=== PATIENT | male | born 1965 | race Caucasian/White ===

== ENCOUNTER 2017-09-21 18:30 | Emergency (ER) | payer OTHER ==
[~2017-09-21 18:30] MED LIST: ACET-1966 PO; CALC300T21 PO; DEXL60CA6 PO; ESOM40CA42 PO; FENU500C PO; HYDR-385 PO; KET10 PO; LACT1CAP6 PO; LOR5/325 PO; MULT-1335 PO; ONDA4TAB PO; SIL50 PO; TRAM-420 PO; no rtn meds
--- NOTE | 2017-09-21 18:39 | ER Report ---
History and Physical Time Seen By MD: 18:39 HPI/ROS CHIEF COMPLAINT: Facial numbness HISTORY OF PRESENT ILLNESS: This is a 51-year-old male who presents to the emergency departments for facial numbness and vertigo type sensation. Patient states that about one week ago he began to feel fatigued, with overall malaise progressing through the week. Patient states on Thursday he had an episode where he felt lightheaded or "dizzy". Patient states that then Thursday he had the same sensation of feeling lightheaded and dizzy more so when he turned his head to the right, patient also states that Thursday he started noticing his face on the left side around the orbit began to feel different, "kind of numb". Patient denies aches, chills, nausea, vomiting, diarrhea is normally pretty healthy. Denies chest pain or shortness of breath. Denies headaches. REVIEW OF SYSTEMS: Constitutional: No fever, no chills. Eyes: No discharge. ENT: No sore throat. Cardiovascular: No chest pain, no palpitations. Respiratory: No cough, no shortness of breath. Gastrointestinal: No abdominal pain, no vomiting. Genitourinary: No hematuria. Musculoskeletal: No back pain. Skin: No rashes. Neurological: As above. Allergies: Coded Allergies: Penicillins (Verified Allergy, Mild, STOMACH UPSET WITH MOST ABX. PCN IN PARTICULAR, 09/21/17) Home Meds Reported Medications [Nugenix] No Conflict Check 09/21/17 Omeprazole (OMEPRAZOLE) 20 Mg Capsule.dr, 1 CAP PO QDAY, CAP 09/21/17 Multivitamin With Minerals (MULTIPLE VITAMIN) 1 Each Tablet, 1 EACH PO DAILY, TAB 08/13/15 Discontinued Reported Medications Acetaminophen (TYLENOL) 325 Mg Tablet, 1-2 TAB PO Q6-8H Y for PAIN, TAB 04/15/16 Fenugreek Seed Extract (FENUGREEK) 500 Mg Capsule, 1 CAP PO QDAY, CAPSULE 04/15/16 Lactobacillus Combination No.4 (PROBIOTIC) 1 Each Capsule, 1 EACH PO QDAY, CAPSULE 04/15/16 Esomeprazole Magnesium (NEXIUM) 40 Mg Capsule.dr, 1 CAP PO QDAY, CAP 08/13/15 Discontinued Scripts Sildenafil Citrate (VIAGRA) 50 Mg Tab, 50 MG PO DAILY, #30 TAB Take 30 mins to four hours before sexual activity. Prov:YOLI FOREMAN MD 04/15/16 Past Medical/Surgical History Calloway has a past medical and surgical history of hypertension, GERD, gallbladder disease, cholecystectomy, broken jaw, broken fingers and toes, occasional back pain, wears glasses, jaw surgery. Reviewed Nurses Notes: Yes Hx Smoking: Yes Smoking Status: Former Smoker Exposure to Second Hand Smoke?: Yes Hx Substance Use Disorder: No Hx Alcohol Use: No Constitutional Vital Sign - Last 24 Hours 09/21/17 09/21/17 09/21/17 09/21/17 18:36 18:40 19:00 19:41 Temp 97.8 Pulse 72 72 Resp 14 15 B/P (MAP) 158/88 (111) 158/88 136/99 (111) Pulse Ox 95 O2 Delivery Room Air 09/21/17 09/21/17 09/21/17 20:00 20:14 20:19 Pulse 61 58 Resp 14 16 B/P (MAP) 133/87 (102) Pulse Ox 94 96 Physical Exam General Appearance: The patient is alert, has no immediate need for airway protection and no signs of toxicity. Eyes: Pupils equal and round no pallor or injection. ENT, Mouth: Mucous membranes are moist. Tonsillar hypertrophy 3+, patient states this is normal. Mildly bulging eardrum on the right, no injection, landmarks noted. Left TM intact, pearly leigh, landmarks noted. No sinus pain with palpation. Respiratory: There are no retractions, lungs are clear to auscultation. Cardiovascular: Regular rate and rhythm, no murmurs, clicks or rubs. Gastrointestinal: Abdomen is soft and non tender, no masses, bowel sounds normal. Neurological: Alert and oriented 4. Moving all extremities. Following all commands. No focal neuro deficits. Cranial nerves II through XII intact. Mild decreased sensation to the left forehead and left chin, no other deficits. Skin: Warm and dry, no rashes. Musculoskeletal: Neck is supple non tender. Extremities are nontender, nonswollen and have full range of motion. DIFFERENTIAL DIAGNOSIS: After history and physical exam differential diagnosis was considered for dizziness including but not limited to peripheral and central causes of vertigo, orthostatic causes including dehydration, CVA, TIA and blood loss. Medical Decision Making Data Points Result Diagram: 09/21/17184409/21/171844 Laboratory Hematology Test 09/21/17 18:45 Red Blood Count 4.83 M/uL (4.00-5.60) Mean Corpuscular Volume 90.4 fL (80.0-96.0) Mean Corpuscular Hemoglobin 31.3 pg (26.0-33.0) Mean Corpuscular Hemoglobin Concent 34.6 g/dL (32.0-36.0) Red Cell Distribution Width 13.9 % (11.5-14.5) Mean Platelet Volume 7.9 fL (7.2-11.1) Neutrophils (%) (Auto) 59.4 % (39.4-72.5) Lymphocytes (%) (Auto) 28.0 % (17.6-49.6) Monocytes (%) (Auto) 8.1 % (4.1-12.4) Eosinophils (%) (Auto) 2.2 % (0.4-6.7) Basophils (%) (Auto) 2.3 % (0.3-1.4) Nucleated RBC Relative Count (auto) 0.0 /100WBC Neutrophils # (Auto) 5.2 K/uL (2.0-7.4) Lymphocytes # (Auto) 2.4 K/uL (1.3-3.6) Monocytes # (Auto) 0.7 K/uL (0.3-1.0) Eosinophils # (Auto) 0.2 K/uL (0.0-0.5) Basophils # (Auto) 0.2 K/uL (0.0-0.1) Nucleated RBC Absolute Count (auto) 0.00 K/uL Urine Color Straw Urine Clarity Clear Urine pH 5.0 pH (4.8-9.5) Urine Specific [place] 1.004 Urine Protein Negative mg/dL (NEGATIVE) Urine Glucose (UA) Negative mg/dL (NEGATIVE) Urine Ketones Negative mg/dL (NEGATIVE) Urine Blood Negative (NEGATIVE) Urine Nitrite Negative (NEGATIVE) Urine Bilirubin Negative (NEGATIVE) Urine Urobilinogen Negative mg/dL (0.2-1.9) Urine Leukocyte Esterase Trace (NEGATIVE) Urine RBC 1 /HPF (0-2/HPF) Urine WBC <1 /HPF (0-5/HPF) Urine Squamous Epithelial Cells None /LPF (</=FEW) Urine Bacteria Negative /HPF (NONE-FEW) Urine Mucus None /HPF (NONE-FEW) Sodium Level 140 mmol/L (137-145) Potassium Level 3.8 mmol/L (3.5-5.0) Chloride Level 106 mmol/L (98-107) Carbon Dioxide Level 23 mmol/L (22-30) Blood Urea Nitrogen 15 mg/dl (9-21) Creatinine 1.10 mg/dl (0.66-1.25) Glomerular Filtration Rate Calc > 60.0 Random Glucose 92 mg/dl (75-110) Calcium Level 9.5 mg/dl (8.4-10.2) Total Bilirubin 0.3 mg/dl (0.2-1.3) Aspartate Amino Transf (AST/SGOT) 23 U/L (0-35) Alanine Aminotransferase (ALT/SGPT) 33 U/L (0-56) Alkaline Phosphatase 66 U/L (0-126) Troponin I < 0.012 ng/ml Total Protein 7.7 gm/dl (6.3-8.2) Albumin 4.2 g/dl (3.5-5.0) Chemistry Test 09/21/17 18:45 White Blood Count 8.7 k/uL (4.5-11.0) Red Blood Count 4.83 M/uL (4.00-5.60) Hemoglobin 15.1 g/dL (14.0-18.0) Hematocrit 43.6 % (42.0-52.0) Mean Corpuscular Volume 90.4 fL (80.0-96.0) Mean Corpuscular Hemoglobin 31.3 pg (26.0-33.0) Mean Corpuscular Hemoglobin Concent 34.6 g/dL (32.0-36.0) Red Cell Distribution Width 13.9 % (11.5-14.5) Platelet Count 237 K/uL (150-450) Mean Platelet Volume 7.9 fL (7.2-11.1) Neutrophils (%) (Auto) 59.4 % (39.4-72.5) Lymphocytes (%) (Auto) 28.0 % (17.6-49.6) Monocytes (%) (Auto) 8.1 % (4.1-12.4) Eosinophils (%) (Auto) 2.2 % (0.4-6.7) Basophils (%) (Auto) 2.3 % (0.3-1.4) Nucleated RBC Relative Count (auto) 0.0 /100WBC Neutrophils # (Auto) 5.2 K/uL (2.0-7.4) Lymphocytes # (Auto) 2.4 K/uL (1.3-3.6) Monocytes # (Auto) 0.7 K/uL (0.3-1.0) Eosinophils # (Auto) 0.2 K/uL (0.0-0.5) Basophils # (Auto) 0.2 K/uL (0.0-0.1) Nucleated RBC Absolute Count (auto) 0.00 K/uL Urine Color Straw Urine Clarity Clear Urine pH 5.0 pH (4.8-9.5) Urine Specific [place] 1.004 Urine Protein Negative mg/dL (NEGATIVE) Urine Glucose (UA) Negative mg/dL (NEGATIVE) Urine Ketones Negative mg/dL (NEGATIVE) Urine Blood Negative (NEGATIVE) Urine Nitrite Negative (NEGATIVE) Urine Bilirubin Negative (NEGATIVE) Urine Urobilinogen Negative mg/dL (0.2-1.9) Urine Leukocyte Esterase Trace (NEGATIVE) Urine RBC 1 /HPF (0-2/HPF) Urine WBC <1 /HPF (0-5/HPF) Urine Squamous Epithelial Cells None /LPF (</=FEW) Urine Bacteria Negative /HPF (NONE-FEW) Urine Mucus None /HPF (NONE-FEW) Glomerular Filtration Rate Calc > 60.0 Calcium Level 9.5 mg/dl (8.4-10.2) Total Bilirubin 0.3 mg/dl (0.2-1.3) Aspartate Amino Transf (AST/SGOT) 23 U/L (0-35) Alanine Aminotransferase (ALT/SGPT) 33 U/L (0-56) Alkaline Phosphatase 66 U/L (0-126) Troponin I < 0.012 ng/ml Total Protein 7.7 gm/dl (6.3-8.2) Albumin 4.2 g/dl (3.5-5.0) Urinalysis Test 09/21/17 18:45 Urine Color Straw Urine Clarity Clear Urine pH 5.0 pH (4.8-9.5) Urine Specific [place] 1.004 Urine Protein Negative mg/dL (NEGATIVE) Urine Glucose (UA) Negative mg/dL (NEGATIVE) Urine Ketones Negative mg/dL (NEGATIVE) Urine Blood Negative (NEGATIVE) Urine Nitrite Negative (NEGATIVE) Urine Bilirubin Negative (NEGATIVE) Urine Urobilinogen Negative mg/dL (0.2-1.9) Urine Leukocyte Esterase Trace (NEGATIVE) Urine RBC 1 /HPF (0-2/HPF) Urine WBC <1 /HPF (0-5/HPF) Urine Squamous Epithelial Cells None /LPF (</=FEW) Urine Bacteria Negative /HPF (NONE-FEW) Urine Mucus None /HPF (NONE-FEW) EKG/Imaging EKG Interpretation 12 lead EKG: Time of EKG 1901. Rhythm: Sinus rhythm, 65 bpm. Sherwood: Incomplete right bundle branch block. QRS: normal ST segments: No ST elevation or depression identified. Inverted T waves in V1 and V3 V4 V5. A previous EKG to compare to. Imaging Location: [facility] [place] Patient: Red Barraza : 1965 Visit/Account:[id number] Date of Sevice: 09/21/2017 Examination: CHEST PA AND LAT Comparison: 08/13/2015 History: dizziness Findings: No consolidation, nodule, or peribronchial inflammation. No pneumothorax, edema, or effusion. Cardiac and hilar contour size is normal. Osseous structures are intact. IMPRESSION: No evidence of acute cardiopulmonary disease. Report Dictated By: Vishnu Tovar MD at 09/21/2017 7:57 PM Report E-Signed By: Vishnu Tovar MD at 09/21/2017 7:58 PM WSN:[id number] Location: [facility] [place] Patient: Red Barraza : 1965 Visit/Account:[id number] Date of Sevice: 09/21/2017 EXAMINATION: CT HEAD WITHOUT CONTRAST COMPARISON: None available HISTORY: dizziness, facial numbness PROCEDURE: Noncontrast CT from the vertex through the skull base. One of the following dose optimization techniques was utilized in the performance of this exam: Automated exposure control; adjustment of the mA and/or kV according to the patient's size; or use of an iterative reconstruction technique. Specific details can be referenced in the facility's radiology CT exam operational policy. FINDINGS: Brain volume: Age-appropriate. Hemorrhage/extra-axial fluid: None. Mass effect/midline shift/edema: None. Ischemia: Leigh-white differentiation is preserved. Ventricles and basal cisterns: Within normal limits. Posterior fossa: Negative. Vessels: Carotid atherosclerosis. Calvarium, skull base, and scalp: Negative. Visualized sinuses and orbits: Within normal limits. IMPRESSION: Negative age-appropriate noncontrast head CT. Report Dictated By: Vishnu Tovar MD at 09/21/2017 7:53 PM Report E-Signed By: Vishnu Tovar MD at 09/21/2017 7:57 PM WSN:[id number] ED Course/Re-evaluation Clinical Indication for ER IV: Hydration, IV Access ED Course The patient was admitted to room. A history and physical were obtained. Differential diagnoses were considered. IV was started. A CBC, CMP, UA were obtained. Lab studies are unremarkable. Negative UA. A head CT was negative for any acute abnormalities. Two-view chest x-ray was negative. I did review these results with the patient and his . I did tell him I don't have a clear explanation as to why he was having these episodes of lightheadedness and the now resolving left-sided facial numbness. I did tell him that its likely that this is residual from the viral illness that he has been recovering from. Patient was also encouraged to follow-up with Dr. Medina for an evaluation of his chronically enlarged tonsils. They do have a follow-up appointment with Dr. Foreman tomorrow. The patient and his had no other questions or concerns at this time and were discharged home. They were in agreement with this plan of care. Decision to Disposition Date: Sep 21, 2017 Decision to Disposition Time: 20:43 Depart Departure Latest Vital Signs Vital Signs Date Time Temp Pulse Resp B/P (MAP) Pulse Ox O2 Delivery O2 Flow Rate FiO2 09/21/17 20:19 58 16 96 09/21/17 20:14 133/87 (102) 09/21/17 18:40 97.8 Room Air Impression: Primary Impression: Lightheadedness Additional Impression: Left facial numbness Condition: Improved Disposition: HOME OR SELF-CARE Referrals: YOLI FOREMAN MD Patient Instructions: Lightheadedness (ED) Additional Instructions: Be sure to drink plenty of fluids. Get plenty of rest. Follow-up with Dr. Foreman tomorrow as scheduled. Return to the emergency department for any other concerns or worsening symptoms. Problem Qualifiers JULIEN CARRASCO KNIFE CUTTER-BC Sep 21, 2017 18:39
[2017-09-21] MEDS ORDERED: OMEP-125 PO (18:49)
[2017-09-21] MEDS ORDERED: NS(*) 0.9% 1000 ML BAG 1,000 ML IV ONE (18:50)
[2017-09-21] MEDS ORDERED: NUGENIX (18:50)
[2017-09-21] MEDS ORDERED: MECLIZINE HCL 25 MG TAB PO ONE (18:50)
[2017-09-21 19:03] LABS: PLATELET COUNT, AUTOMATED 237 K/uL (150-450)
--- NOTE | 2017-09-21 19:41 | EKG ---
FACILITY: PATIENT NAME: JAZMÍN PATRICK : [id number] MR: [id number] V: [id number] EXAM DATE: ORDERING PHYSICIAN: JULIEN CARRASCO TECHNOLOGIST: ISELA Test Reason : DIZZINESS Blood Pressure : / mmHG Vent. Rate : 065 BPM Atrial Rate : 065 BPM P-R Int : 144 ms QRS Dur : 112 ms QT Int : 414 ms P-R-T Axes : 062 -27 012 degrees QTc Int : 430 ms Normal sinus rhythm Incomplete right bundle branch block T wave abnormality, consider lateral ischemia Abnormal ECG No previous ECGs available Confirmed by YANET FAN ([id number]) on 09/22/2017 6:31:25 AM Referred By: Confirmed By:YANET FAN
--- NOTE | 2017-09-21 20:01 | RADIOLOGY IMAGING REPORT ---
FACILITY: [facility] [place] PATIENT NAME: Red Barraza : 1965 MR: [id number] V: [id number] EXAM DATE: ORDERING PHYSICIAN: JULIEN CARRASCO TECHNOLOGIST: Location: Patient: Red Barraza : 1965 Visit/Account:[id number] Date of Sevice: 09/21/2017 EXAMINATION: CT HEAD WITHOUT CONTRAST COMPARISON: None available HISTORY: dizziness, facial numbness PROCEDURE: Noncontrast CT from the vertex through the skull base. One of the following dose optimizat ion techniques was utilized in the performance of this exam: Automated exposure control; adjustment o f the mA and/or kV according to the patient's size; or use of an iterative reconstruction technique. Specific details can be referenced in the facility's radiology CT exam operational policy. FINDINGS: Brain volume: Age-appropriate. Hemorrhage/extra-axial fluid: None. Mass effect/midline shift/edema: None. Ischemia: Leigh-white differentiation is preserved. Ventricles and basal cisterns: Within normal limits. Posterior fossa: Negative. Vessels: Carotid atherosclerosis. Calvarium, skull base, and scalp: Negative. Visualized sinuses and orbits: Within normal limits. IMPRESSION: Negative age-appropriate noncontrast head CT. Report Dictated By: Vishnu Tovar MD at 09/21/2017 7:53 PM Report E-Signed By: Vishnu Tovar MD at 09/21/2017 7:57 PM WSN:[id number]
--- NOTE | 2017-09-21 20:02 | RADIOLOGY IMAGING REPORT ---
FACILITY: [facility] PATIENT NAME: Red Barraza : 1965 MR: [id number] V: [id number] EXAM DATE: ORDERING PHYSICIAN: JULIEN CARRASCO TECHNOLOGIST: Location: [facility] [place] Patient: Red Barraza : 1965 Visit/Account:[id number] Date of Sevice: 09/21/2017 Examination: CHEST PA AND LAT Comparison: 08/13/2015 History: dizziness Findings: No consolidation, nodule, or peribronchial inflammation. No pneumothorax, edema, or effusio n. Cardiac and hilar contour size is normal. Osseous structures are intact. IMPRESSION: No evidence of acute cardiopulmonary disease. Report Dictated By: Vishnu Tovar MD at 09/21/2017 7:57 PM Report E-Signed By: Vishnu Tovar MD at 09/21/2017 7:58 PM WSN:[id number]
[2017-09-21 20:14] VITALS: BP 133/87
== END 2017-09-21 20:47 | disposition home or self-care (01) ==
LOC: ER 18:50
DX: R42 Dizziness and giddiness (principal); R20.0 Anesthesia of skin
CPT/HCPCS: 70450; 71046; 81001; 84484; 85025; 93005; 96360; 99284; J7030; J8597; 82040; 82247; 82310; 82374; 82435; 82565; 82947; 84075; 84132; 84155; 84295; 84450; 84460; 84520

== ENCOUNTER → 2017-09-22 | Outpatient (CLI) | payer OTHER ==
[~2017-09-22] MED LIST changes: +ATOR40TA24 PO; +FLUT16SP19 NS; +LISI-362 PO; +NUGENIX; +OMEP-125 PO
--- NOTE | 2017-09-22 14:19 | EKG ---
FACILITY: [facility] [place] PATIENT NAME: JAZMÍN PATRICK : [id number] MR: [id number] V: [id number] EXAM DATE: ORDERING PHYSICIAN: YOLI LIZARRAGA TECHNOLOGIST: BETO FITCH Test Reason : ABNORMAL EKG Blood Pressure : / mmHG Vent. Rate : 055 BPM Atrial Rate : 055 BPM P-R Int : 140 ms QRS Dur : 110 ms QT Int : 418 ms P-R-T Axes : 067 -14 014 degrees QTc Int : [address] and T wave abnormality, consider anterior ischemia Abnormal ECG No previous ECGs available Referred By: Confirmed By:
== END ==
LOC: RAD 13:41
PROVIDERS: ATTEND Emergency Medicine
DX: R00.1 Bradycardia, unspecified (principal); R94.31 Abnormal electrocardiogram [ECG] [EKG]; I70.90 Unspecified atherosclerosis
CPT/HCPCS: 36415; 82465; 83718; 84478; 84484

== ENCOUNTER → 2017-09-23 | Outpatient (CLI) | payer OTHER ==
[~2017-09-23] MED LIST changes: -ATOR40TA24 PO; -FLUT16SP19 NS; +GADOBENATE 529MG/1ML 15ML VIAL IVP ONE; -LISI-362 PO
--- NOTE | 2017-09-23 08:05 | RADIOLOGY IMAGING REPORT ---
FACILITY: [facility] [place] PATIENT NAME: Red Barraza : 1965 MR: [id number] V: [id number] EXAM DATE: ORDERING PHYSICIAN: YOLI LIZARRAGA [place]CHNOLOGIST: [place] [facility] [place]ra[place] : 1965 Visit/Account:[id number] Date of Sevice: 09/23/2017 ORBITS FOREIGN BODY 1 VIEW HISTORY: Pre-MRI. COMPARISON: Head CT 09/21/2017. TECHNIQUE: PA Chance view of the orbits. FINDINGS: There is no orbital metallic foreign body. There is dense calcification along the falx, unc hanged. Mastoids and paranasal sinuses are clear. IMPRESSION: 1. No orbital metallic foreign body. Report Dictated By: Jannet Gates at 09/23/2017 7:59 AM Report E-Signed By: Jannet Gates at 09/23/2017 8:01 AM WSN:[id number]
--- NOTE | 2017-09-23 09:27 | RADIOLOGY IMAGING REPORT ---
[place] [facility] [place] Red Barraza : 1965 MR: [id number] V: [id number] EXAM DATE: ORDERING PHYSICIAN: YOLI LIZARRAGA TECHNOLOGIST: Location: [facility] Patient: Red Barraza : 1965 Visit/Account:[id number] Date of Sevice: 09/23/2017 EXAMINATION: MRI Brain without intravenous contrast MRI Brain with intravenous contrast HISTORY: Left facial numbness. COMPARISON: Noncontrast head CT dated 09/21/2017. TECHNIQUE: Multi-planar, multi-sequence brain MRI was performed before and after IV gadolinium. CONTRAST: 15 mL of IV MultiHance FINDINGS: Brain volume: Normal. Sagittal midline structures: Negative. Ventricles: Negative. Acute ischemic changes: None. Hemorrhage: None. Masses / edema: None. Enhancement: Negative. Leigh-white: Negative. White matter: A few T2/FLAIR hyperintensities in the deep white matter bilaterally. Vessels: Negative. Extra-axial: Mild dural ossification along the falx. Otherwise negative. Calvarium / scalp: Negative. Skull base: Negative. Visualized sinuses / orbits: Negative. Visualized upper neck: Negative. IMPRESSION: 1. No acute intracranial abnormality or mass. 2. Mild chronic white matter changes are nonspecific but most likely represent chronic microvascular ischemia. Report Dictated By: Sid Cullen MD at 09/23/2017 9:07 AM Report E-Signed By: Sid Cullen MD at 09/23/2017 9:22 AM WSN:[email or web address]
== END ==
LOC: MRI 07:27
PROVIDERS: ATTEND Emergency Medicine
DX: I67.82 Cerebral ischemia (principal)
CPT/HCPCS: 70030; 70553; 86140; A9577

== ENCOUNTER → 2017-09-24 | Outpatient (CLI) | payer OTHER ==
[~2017-09-24] MED LIST changes: +ATOR40TA24 PO; +FLUT16SP19 NS; -GADOBENATE 529MG/1ML 15ML VIAL IVP ONE; +LISI-362 PO; +REGADENOSON 0.4 MG/5 ML SYR ONE
--- NOTE | 2017-09-24 13:36 | RADIOLOGY IMAGING REPORT ---
FACILITY: [facility] PATIENT NAME: Red Barraza : 1965 MR: [id number] V: [id number] EXAM DATE: [id number] ORDERING PHYSICIAN: YOLI LIZARRAGA TECHNOLOGIST: Location: [facility] Patient: Red Barraza : 1965 Visit/Account:[id number] Date of Sevice: 09/24/2017 EXAMINATION: MRA of the [place] HISTORY: Left face numbness. COMPARISON: Brain MRI with and without contrast dated 09/23/2017. TECHNIQUE: [id number]-flight angiography was performed in the axial plane on the [place] without IV mckenzie olinium. The exam was tailored for assessment of the [place] only. Only limited sequences were obtai marisel of the rest of the brain. FINDINGS: Petrous carotids: Negative. Carotid siphons / bifurcations: Negative. Anterior / Posterior communicating arteries: Negative. Anterior cerebral arteries: Negative. Middle cerebral arteries: Negative. Intra-cranial vertebral arteries: Negative. Basilar artery: Negative. PICA / AICA / SCA / COMPENSATION ADMINISTRATOR: Negative. Non-angiographic Findings: None significant. IMPRESSION: Normal MRA of the [place]. Report Dictated By: Sid Cullen MD at 09/24/2017 1:29 PM Report E-Signed By: Sid Cullen MD at 09/24/2017 1:31 PM WSN:[id number]
--- NOTE | 2017-09-24 16:35 | RADIOLOGY IMAGING REPORT ---
FACILITY: [facility] [place] PATIENT NAME: Red Barraza : 1965 MR: [id number] V: [id number] EXAM DATE: [id number] ORDERING PHYSICIAN: YOLI LIZARRAGA TECHNOLOGIST: Location: [facility] [place] Patient: Red Barraza : 1965 Visit/Account:[id number] Date of Sevice: 09/24/2017 EXAMINATION: Single isotope SPECT imaging with regadenoson infusion and gated SPECT imaging. DATE OF EXAMINATION: 09/24/2017. DATE OF INTERPRETATION: B 18/03/2018. REQUESTING PHYSICIAN: YOLI LIZARRAGA. INDICATION: The patient is a 51-year-old male evaluated for abnormal EKG, dizziness, fatigue. PROCEDURE: After informed consent the patient received an intravenous injection of 12.3 mCi of Tc-99 m sestamibi followed at an appropriate time interval by rest imaging. The patient then subsequently received an intravenous infusion of 0.4 mg of regadenoson per protocol without complication. Resting heart rate was 55 bpm with a peak heart rate of 82 bpm. Blood pressure at rest was 129 / 82 and fol lowing infusion was 108 / 74. Baseline EKG demonstrates sinus rhythm. There were no diagnostic EKG changes of ischemia following infusion. Symptoms were nonspecific. The patient then received an int ravenous injection of 29.3 mCi of Tc-99m sestamibi followed by stress imaging. RAW DATA: Examination of the summed raw data revealed a fair quality study. There is significant GI uptake of isotope partially overlapping the inferior wall. MYOCARDIAL PERFUSION: The tomographic images demonstrate probably normal perfusion rest and stress w ith no definite areas of infarct or ischemia seen.. GATED IMAGES: The gated images demonstrate normal regional wall motion and thickening, LVEF 55%. IMPRESSION: 1. Nondiagnostic Lexiscan stress ECG 2. Probably normal myocardial perfusion scan. No definite areas of infarct or ischemia seen. 3. Normal LV systolic function; LVEF 55%. Report Dictated By: Simeon Cortes MD at 09/24/2017 4:27 PM Report E-Signed By: Simeon Cortes MD at 09/24/2017 4:31 PM WSN:[id number]
== END ==
LOC: NUC 01:19
PROVIDERS: ATTEND Emergency Medicine
DX: R20.0 Anesthesia of skin (principal); R94.31 Abnormal electrocardiogram [ECG] [EKG]
CPT/HCPCS: 70544; 78452; 93017; A9500; J2785

== ENCOUNTER → 2017-10-27 | Outpatient (CLI) | payer OTHER ==
[~2017-10-27] MED LIST changes: +ATOR20TA65 PO; +GOLYTE PO; -REGADENOSON 0.4 MG/5 ML SYR ONE
== END ==
LOC: LAB 11:03
PROVIDERS: ATTEND Emergency Medicine
DX: I10 Essential (primary) hypertension (principal); Z91.89 Other specified personal risk factors, not elsewhere classified; E66.9 Obesity, unspecified; I67.9 Cerebrovascular disease, unspecified; R25.2 Cramp and spasm; E83.52 Hypercalcemia
CPT/HCPCS: 36415; 82306; 82310; 82374; 82435; 82465; 82565; 82947; 83718; 83970; 84132; 84160; 84165; 84295; 84443; 84478; 84520

== ENCOUNTER → 2018-02-23 | Outpatient (CLI) | payer OTHER ==
[~2018-02-23] MED LIST changes: +EZET10TA41 PO
== END ==
LOC: LAB 09:35
PROVIDERS: ATTEND Emergency Medicine
DX: I10 Essential (primary) hypertension (principal)
CPT/HCPCS: 36415; 82310; 82374; 82435; 82565; 82947; 84132; 84295; 84520